=== PATIENT | male | born 1975 | race Two or more races ===

== ENCOUNTER 2016-10-17 14:32 | Emergency (ER) | payer MEDICAID ==
[~2016-10-17] VITALS: Ht 180.3 cm; Wt 90.7 kg
[2016-10-17 15:49] LABS: Basophils # (auto) 0.1 uL; Basophils % (auto) 0.7 % (0.0-2.0); CONDITION AutoValidated; Eosinophils # (auto) 0 uL; Hematocrit 37.8 % (41.0-53.0); Hemoglobin 12.6 g/dL (13.5-17.5); Lymphocytes # (auto) 0.5 uL; Lymphocytes % (auto) 6.3 % (10.0-50.0); Mean Corpuscular Hemoglobin 27.1 pg (28.0-32.0); Mean Corpuscular Hgb Conc. 33.5 g/dL (32.0-36.0); Mean Corpuscular Volume 80.8 fL (80.0-100.0); Mean Platelet Volume 7.9 fL (7.4-10.4); Monocytes # (auto) 0.6 uL; Neutrophils # (auto) 6.7 uL; Platelet Count (auto) 156 10^3/uL (140-450); White Blood Cell 7.8 10^3/uL (4.4-10.8)
[2016-10-17 16:01] LABS: Albumin 3.3 g/dL (3.4-5.0); Anion Gap 12 (5-15); Aspartate Aminotransferase 46 U/L (15-37); BUN/Creatinine Ratio 13.1; Blood Urea Nitrogen 11 mg/dL (7-18); Calcium 8.2 mg/dL (8.5-10.1); Carbon Dioxide 26 mmol/L (21-32); Chloride 99 mmol/L (98-107); GFR African American 130 mL/min; GFR Non-African American 108 mL/min; Glucose 136 mg/dL (74-106); Potassium 3.7 mmol/L (3.5-5.1); Sodium 137 mmol/L (136-145)
[2016-10-17 16:04] LABS: Alkaline Phosphatase 101 U/L (45-117); Bilirubin, Total 0.9 mg/dL (0.2-1.0); Total Protein 7.8 g/dL (6.4-8.2)
[2016-10-17] MEDS ORDERED: PANTOPRAZOLE SODIUM 40 MG/10 ML VIAL IV ONE (16:45)
[2016-10-17] MEDS ORDERED: LORazepam 2MG/ML-1ML VIAL IV ONE (16:45)
[2016-10-17 16:46] VITALS: BP 149/101
[2016-10-17] MEDS ORDERED: SODIUM CHLORIDE 0.9% 1,000 ML IV ONE (16:52)
== END 2016-10-17 18:01 | disposition home or self-care (01) ==
LOC: EDBD 14:32 → ER 14:43
DX: K29.70 Gastritis, unspecified, without bleeding (principal); F41.9 Anxiety disorder, unspecified; Z87.11 Personal history of peptic ulcer disease
CPT/HCPCS: 36415; 71010; 80053; 80320; 85025; 93005; 96374; 96375; 99285; C9113; J2060

== ENCOUNTER 2017-05-14 17:55 | Emergency (ER) | payer MEDICAID, OTHER ==
[~2017-05-14] VITALS: Ht 180.3 cm; Wt 98.9 kg
[2017-05-14 18:04] VITALS: BP 126/85
== END 2017-05-15 03:29 | disposition left against medical advice (07) ==
LOC: ER 17:55 → EDBD 17:55 → ER 19:00
DX: R56.9 Unspecified convulsions (principal); Z53.21 Procedure and treatment not carried out due to patient leaving prior to being seen by health care provider